=== PATIENT | male | born 2000 | race Caucasian/White ===

== ENCOUNTER 2025-08-12 17:27 | Emergency (ER) | payer OTHER, SELFPAY ==
[2025-08-12 17:54] VITALS: BP 148/85; PULSE 82; RESP 16; TEMP 36.7; O2SAT 98; BMI 32.4
--- NOTE | 2025-08-12 20:23 | ED_ITS ---
HPI - General Adult General Chief complaint: Extremity Pain/Injury, Upper Stated complaint: injured finger Time Seen by Provider: 08/12/25 20:22 History of Present Illness HPI narrative: c/o smashed finger pt. was lifting a motor at work with a triplett and it shifted and started to fall and out of instinct reached out to catch it and it smashed my finger pt estimates motor weights 150- 200lbs. pt. finger is bloody in triage. pt is still able to feel and move his finger in triage. 25-year-old man presenting to the emergency department after injuring his right index finger. He is left-hand dominant. Was lifting a motor at work which shifted and he instinctively reached out to catch it and it smashed his finger. Is having tolerable pain. There is injury that has generated blood but he is uncertain whether not it will need repair. Related Data Home Medications ?Medication ?Instructions ?Recorded ?Confirmed No Known Home Medications 08/12/2507/17 Allergies Allergy/AdvReac Type Severity Reaction Status Date / Time No Known Drug Allergies Allergy Verified 08/12/25 17:53 Review of Systems Status of ROS: Reports: 6 or more systems reviewed and unremarkable except as noted in History and below Exam Narrative: Exam Narrative: Pleasant. NAD. Favoring his right hand which is wrapped in gauze and Coban. There is bloody staining. Examination of the right index finger removing the gauze shows an avulsed nail with laceration, separation of the proximal perilunar nailfold. There is subungual hematoma but with pressure this bleeds out the proximal aspect. After anesthetizing finger with bupivacaine in a digital block able to explore further does not appear that there is a nail bed laceration otherwise. Const: Vital Signs, click to edit/add: Vital Signs - 24 hr 08/12/25 17:54 Temperature 98.0 F Pulse Rate [Pulse Oximeter] 82 Respiratory Rate 16 Blood Pressure [Ri ght Upper Arm] 148/85 H Pulse Oximetry 98 Oxygen Delivery Me thod Room Air Documenting provider has reviewed patient's vital signs: yes Course Vital Signs Vital signs: Initial Vital Signs Temperature 98.0 F 08/12/25 17:54 Temperature Source Temporal Artery Scan 08/12/25 17:54 Pulse Rate 82 08/12/25 17:54 Respiratory Rate 16 08/12/25 17:54 Blood Pressure 148/85 H 08/12/25 17:54 Blood Pressure Mean 106 H 08/12/25 17:54 Blood Pressure Position Sitting 08/12/25 17:54 Pulse Oximetry 98 08/12/25 17:54 Oxygen Delivery Method Room Air 08/12/25 17:54 Vital Signs Temperature 98.0 F 08/12/25 17:54 Pulse Rate 82 08/12/25 17:54 Respiratory Rate 16 08/12/25 17:54 Blood Pressure 148/85 H 08/12/25 17:54 Pulse Oximetry 98 08/12/25 17:54 Oxygen Delivery Method Room Air 08/12/25 17:54 Temperature 98.0 F 08/12/25 17:54 Pulse Rate 82 08/12/25 17:54 Respiratory Rate 16 08/12/25 17:54 Blood Pressure 148/85 H 08/12/25 17:54 Pulse Oximetry 98 08/12/25 17:54 Oxygen Delivery Method Room Air 08/12/25 17:54 Medications Administered Medications: Discontinued Medications Generic Name Dose Route Start Last Admin Trade Name Bruna PRN Reason Stop Dose Admin Bupivacaine HCl 4 ml 08/12/25 23:04 08/12/25 23:05 Bupivacaine 0.25% 30 Ml INJECTION 08/12/25 23:05 4 ml ONCE ONE Administration Medical Decision Making MDM Narrative Medical decision making narrative: I think would feel better and have better healing with some replacement of this nail. X-ray of the right index finger though independently reviewed by me does show a distal tuft displaced fracture. Returning to cleansed with Hibiclens and water solution. Repeat bupivacaine dosing. I did briefly place a tourniquet for better visualization and replaced proximal nail under the nail fold over the nail bed. With a little effort it did seat nicely. Antibiotic ointment and Band-Aid with Sunni gauze as light pressure dressing and then a bivalve finger splint. Was supplied with some other options for splints as needed over the next few weeks. There was no bleeding through bandage prior to departure. I am not convinced this is truly an open fracture but think prudent to prophylax with antibiotics. See patient discharge plan for further discussion Elevation and ibuprofen or acetaminophen for comfort. Can take up to 800 mg of ibuprofen or up to 1000 of acetaminophen per dose. Leave this current bandage on until tomorrow mid-day. If you bleed through thi s, re-dress. If you bleed through that one as well, return. I would keep this bandaged over the next week. Okay to trim away or remove nail if it is causing you irritation. Use some combination of the splints provided to protect if needed over the next couple of weeks, mostly for comfort. Watch for spreading redness after 2 days, marked increase in pain or swelling, purulent drainage. Otherwise I am prescribing a brief course of antibiotics, cephalexin, from [facility] as prophylaxis. Do what you can to stop chewing your nails :) Discharge Plan Discharge Clinical Impression: Crush injury to finger, Avulsion of nail, Fracture of distal phalanx of finger Patient Disposition: Home, Self-Care Condition: Improved Additional Instructions: Elevation and ibuprofen or acetaminophen for comfort. Can take up to 800 mg of ibuprofen or up to 1000 of acetaminophen per dose. Leave this current bandage on until tomorrow mid-day. If you bleed through this, re-dress. If you bleed through that one as well, return. I would keep this bandaged over the next week. Okay to trim away or remove nail if it is causing you irritation. Use some combination of the splints provided to protect if needed over the next couple of weeks, mostly for comfort. Watch for spreading redness after 2 days, marked increase in pain or swelling, purulent drainage. Otherwise I am prescribing a brief course of antibiotics, cephalexin, from [facility] as prophylaxis. Do what you can to stop chewing your nails :) Prescriptions: No Action No Known Home Medications Follow Up/Referrals: Provider,Not a Local [Primary Care Provider, Family Practice] Stand Alone Forms: [employer] Info Instructions
--- NOTE | 2025-08-12 20:32 | CRLHL7_ITS ---
For Patients: As a result of the Cures Act, medical imaging exams and procedure reports are released immediately into your electronic medical record. You may view this report before your referring provider. If you have questions, please contact your health care provider. INDICATION: Crush injury. TECHNIQUE: Right hand 2nd digit three views. COMPARISON: None. FINDINGS: Displaced fracture of the 2nd distal phalangeal tuft. Joint alignment and spaces are maintained. Soft tissue swelling. No retained radiopaque foreign body. IMPRESSION: Displaced 2nd distal phalangeal tuft fracture. Dictated by Javed Donato MD @ 08/12/2025 9:43:34 PM (Electronically Signed)
--- OUTSIDE RECORDS SUMMARY | 2025-08-12 20:51 | XMS_ITS | Clinical Summary ---
Author Organization [facility] Address [address] [place] [id number] Care Team Providers Care Line Installer Name Role Phone Unavailable Primary Care Provider Unavailabl e Allergies No known active allergies Medications methylPREDNISolo ne (Medrol, Hever,) 4 mg tabletIndication s:Chronic pain of left knee,Recurrent left knee instability Take by mouth as instructed per packaging. 21 Tablet 2 Active Active Problems Problem Noted Date Diagnosed Date Sensorineural hearing loss of right ear 07/27/20 15 Resolved Problems Problem Noted Date Diagnosed Date Resolved Date Sensorineural hearing loss, unilateral 02/23/2009 07/27/2015 Immunizations Immunization Administration Dates Next Due COVID-19 vaccine (GetfuguBio NTech 30mcg/0.3mL) PF, MDV 08/09/2021,07/19/2021 DTaP 05/28/2007, 3,06/07/2002,03/16,2001 HIB-HepB (Comvax) 01/13/2003,03/25/2002,11/30/19 02 HPV 9 (Gardasil 9) 07/18/2019,06/06/2018 018 Hepatitis A (Peds) 06/06/2018,06/11/2014 Inactivated Polio Vaccine 05/28/2007,,03/25/2002,11/16 Influenza, IIV3 (Age 6-35 mos) 08/23/2007 Influenza, IIV3 (Age >=3 years) 08/03/2007 Influenza, IIV4 07/18/2019 MENINGOCOCCAL VACCINE 2 VIAL [id number] (MENVEO) 06/06/2018,06/11/2014 MMR 01/13/2003 MMRV 05/28/2007 Pneumococcal conj 7-Valent ( Prevnar 7) 01/13/2003,2001 Tdap 01/28/2023,06/11/2014 Varicella Vaccine 01/13/2003 Family History Medical History Relation Name Comments Seizures Brother 3 Heart Disease Maternal Grandfather Asthma Maternal Grandmother Cancer Maternal Grandmother lung Heart Disease Maternal Grandmother Hyperlipidemia Maternal Grandmother Hypertension Maternal Grandmother Osteoporosis Maternal Grandmother Psychiatric illness Maternal Grandmother depression Stroke Maternal Grandmother Diabetes Mother Relation Name Status Comments Brother 1 Alive Brother 2 Alive Brother 3 Father Alive Maternal Grandfather Maternal Grandmother Mother Alive Paternal Grandfather Alive Paternal Grandmother Alive Sister Alive Social History Tobacco Use Types Packs/Day Years Used Date Smoking Tobacco: Never Smokeless Tobacco: Never Tobacco Cessation:Counseling Given: Yes Alcohol Use Standard Drinks/Week Comments No 0 (1 standard drink = 0.6 oz pur e alcohol) PHQ-2 Answer Date Recorded PHQ-2 Score 0 07/18/2019 Social Connections Answer Date Recorded Frequency of Communication with Friends and Fami ly Not on file 02/14/2024 Financial Resource Strain Answer Date R ecorded Difficulty of Paying Living Expenses 3 02/06/2023 Difficulty of Paying Living Expenses Not on file 02/06/2023 Food Insecurity Answer Date Recorded Worried About Running Out of Food in the Last Ye ar 1 02/06/2023 Transportation Needs Answer Date Record ed Lack of Transportation (Medical) 1 02/06/2023 Housing Stability Answer Date Recorded Unable to Pay for Housing in the Last Year 1 02/06/2023 Sex and Gender Information Value Date Recorded Sex Assigned at Not on file 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 Gender Identity Not on file Sexual Orientation Not on file Occupation Industry Job Start Date Job End Date student Not on file Not on file Not on file Obstetrics History Last Filed Vital Signs Vital Sign Reading Time Taken Comments Blood Pressure 105/84 01/28/2023 2:37 AM CDT Pulse 61 01/28/2023 2:37 AM CDT Temperature 37.1 C (98.7 F) 01/28/2023 1:30 AM CDT Respiratory Rate 18 01/28/2023 1:30 AM CDT Oxygen Saturation 100% 01/28/2023 2:37 AM CDT Inhaled Oxygen Concentration - - Weight 110.8 kg (244 lb 4.3 oz) 01/28/2023 1:30 AM CDT Height 172.7 cm (5' 8) 01/28/2023 1:30 AM CDT Body Mass Index 37.14 01/28/2023 1:30 AM CDT Plan of Treatment Health Maintenance Due Date Last Done Comments Depression screening for age 12+ 2013 HIV for age 15-65 2016 Hepatitis C screening for age 18-79 2019 HPV series for age 9-45 (3 - Male 3-dose series) 10/10/2019 07/18/2019, 06/06/2018 BMI (ht and wt on same day) for age 18+ 09/22/2023 09/22/2022, 10/05/2020, 08/28/2020, Additional history exists COVID-19 vaccine series ( - 2024- season) 2025 08/09/2021, 07/19/2021 Influenza Vaccine (#1) 2025 9, 08/23/2007, 08/03/2007 Tetanus booster 01/28/2033 01/28/2023, 06/11/2014 RSV vaccine for adults or (1 - 1-dose 75+ series) 2076 Hepatitis B series for 19+ Completed 01/13, 03/25/2002, 2001 Pneumococcal series for age 6-49 Aged Out 01/13/2003, 2001 No longer eligibl e based on patient's age to complete this topic Insurance [address] [place], [place] [address] COUNTS INCLUDE 234 BEDS AT [facility] COUNTS INCLUDE 234 BEDS AT THE [facility] Advance Directives * Full Code (Latest Code Status on File) Date Activated Date Inactivated Comments 09/22/2020 11:16 AM 09/22/2020 5:18 PM Question Answer Comments Code Status Discussion: Discussed
[2025-08-12] MEDS: BUPIVACAINE 0.25% 30 ML 4 ML INJECTION (23:05)
== END 2025-08-12 22:57 | disposition home or self-care (01) ==
PROVIDERS: Emergency Provider Family Medicine
DX: S62.660A Nondisplaced fracture of distal phalanx of right index finger, initial encounter for closed fracture (principal); S61.301A Unspecified open wound of left index finger with damage to nail, initial encounter; W23.0XXA Caught, crushed, jammed, or pinched between moving objects, initial encounter; Y99.0 Civilian activity done for income or pay
CPT/HCPCS: 29130; 73140; 99284; J0665